=== PATIENT | male | born 1960 | race Caucasian/White ===

== ENCOUNTER 2019-01-30 08:06 | Day surgery (SDC) | payer OTHER ==
[~2019-01-30] VITALS: Ht 185.4 cm; Wt 98.4 kg
[~2019-01-30 08:06] MED LIST: ACETAMINOPHEN-1 EAC1 PO; GRALISE1 EACH PO; NORCO 10-325 T1 EACH PO
[2019-01-30] MEDS ORDERED: BACLOFEN5 MG PO (08:34)
--- NOTE | 2019-01-30 11:21 | NUR ---
01/30/19 1121 Radha Rebollar 1118-PATIENT ARRIVED TO PACU ON 2L NC RR EVEN. LAYING LEFT LATERAL. PATIENT DROWSY AROUSES TO VERBAL STIMULI DOZES BACK TO SLEEP. ENCOURAGED TO PASS GAS
--- NOTE | 2019-01-31 09:51 | OR ---
[facility] [address], [place] [address] Signed DATE OF OPERATION: 01/30/2019 SURGEON: Neema Cardozo MD PREOPERATIVE DIAGNOSES: 1. Screening. 2. External hemorrhoids. POSTOPERATIVE DIAGNOSES: 1. A 4 mm polyp at 35 cm. 2. Minimal sigmoid diverticulosis. 3. Minimal internal hemorrhoids. PROCEDURE: Colonoscopy with hot biopsy. ESTIMATED BLOOD LOSS: None. INDICATIONS: Victor Manuel is a 58-year-old gentleman, asked to see me for a followup colonoscopy. He had a negative colonoscopy in December 2005. He has no family history of colon cancer or polyps. He went through the [facility] stapled hemorrhoidopexy for his bleeding external hemorrhoids. He said once in a while, he still has a little blood. Otherwise, he is doing fine. He told me about the ishmael in his left hip/femur. In the office, I gave Aleida booklet on colonoscopy and we looked it together along with the risks including, but not limited to gas, bloating, crampy abdominal pain, bleeding, perforation requiring surgery, and missed diagnosis. We also discussed the need for IV conscious sedation. He had expressed understanding and wished to proceed. PROCEDURE NOTE: Victor Manuel was taken into our endoscopy suite and placed in the left lateral decubitus position. He was given IV sedation with a total of 6 mg of Versed and 100 mcg of fentanyl. A digital rectal exam was performed. Really, the external area of the anus was quite unremarkable. He has good sphincter tone. His prostate is not enlarged, but is a little indurated. The adult colonoscope was then introduced and advanced under direct visualization of camera up into the cecum itself. His prep was good. We could easily see the appendiceal orifice and the ileocecal valve. The scope was slowly withdrawn. We took pictures throughout for photodocumentation. We saw a single small 4 mm polyp at 35 cm. It was easily removed with the help of hot biopsy forceps. We saw Electronically Signed By: NEEMA CARDOZO MD 01/31/19 0951 PATIENT NAME: VICTOR MANUEL QUIROZ OPERATIVE REPORT DATE OF : 64 REPORT #: [id number] PHYSICIAN: NEEMA CARDOZO MD PCP: PRINCE MOISE PA-C REPORT IS CONFIDENTIAL AND NOT TO BE RELEASED WITHOUT AUTHORIZATION [facility] [address], [place] [address] Signed just a few diverticula in the proximal sigmoid colon. Once in the rectum, he does have an interesting haustral fold at about 5 cm where there was some scar coming down. We did take several pictures of that just for photodocumentation. However, he has never had any rectal surgery up that high. When we retroflexed the scope, we can see just a tiny circular scar from his previous PPH hemorrhoidopexy. He has very small internal hemorrhoid columns. After this, the gas was suctioned out and colonoscope removed. Victor Manuel tolerated the procedure quite well. RECOMMENDATIONS: I will see Victor Manuel back in my office in 7 to 14 days to review his results. Neema Cardozo MD ALB/MODL /[id number] cc: KHANH Jaquez MD Copies: PRINCE MOISE PA-C, ANDREW L MD ~ Electronically Signed By: NEEMA CARDOZO MD 01/31/19 0951 PATIENT NAME: VICTOR MANUEL QUIROZ OPERATIVE REPORT DATE OF : 64 REPORT #: [id number] PHYSICIAN: NEEMA CARDOZO MD PCP: PRINCE MOISE PA-C REPORT IS CONFIDENTIAL AND NOT TO BE RELEASED WITHOUT AUTHORIZATION
--- NOTE | 2019-01-31 15:47 | PATH ---
[facility] [address] [place], [place] [address] Signed SPECIMEN(S): A COLON POLYP AT 35 CM SPECIMEN SOURCE: A. COLON POLYP AT 35 CM CLINICAL HISTORY: History of external hemorrhoids. Postop DX: Diverticulosis; polyp; internal hemorrhoids. MICROSCOPIC DESCRIPTION: Histologic sections of all submitted blocks are examined by light microscopy. These findings, together with the gross examination, support the pathologic diagnosis. FINAL PATHOLOGIC DIAGNOSIS: Mucosa, colon at 35 cm, biopsy: - Surface features suggestive but not entirely diagnostic for hyperplastic polyp. COMMENT: Multiple levels over 3 slides are examined. No adenomatous change or full thickness hyperplastic change is seen. LJA:glc:C GROSS DESCRIPTION: The specimen, labeled "RODERICK, colon polyp at 35 cm," is received in formalin and consists of a single 0.2 cm mahmood tissue fragment. Specimen is entirely submitted in cassette (A1). AM (under the direct supervision of a pathologist) The Gross Description was prepared using a voice recognition system. The report was reviewed for accuracy; however, sound-alike word errors, addition and/or deletions may occur. If there is any question about this report, please contact Client Services. PERFORMING LABORATORY: The technical component was performed by [employer] [address] [place] [id number] (Restaurant Floor Manager: Brandy Mendoza MD; CLIA# [id number]). Professional interpretation was performed by [employer], [address] [address] (Restaurant Floor Manager: Michoacano Velasquez MD; CLIA# [id number]). PATIENT NAME: VICTOR MANUEL QUIROZ PATHOLOGY DATE OF : 64 REPORT #: [id number] PHYSICIAN: [facility] PATH[facility] PCP: PRINCE MOISE PA-C REPORT IS CONFIDENTIAL AND NOT TO BE RELEASED WITHOUT AUTHORIZATION [facility] [address] [place], [place] [address], [place] [address] Signed Diagnostician: Michoacano Velasquez MD Pathologist Electronically Signed 01/31/2019 Copies: ~ PATIENT NAME: VICTOR MANUEL QUIROZ PATHOLOGY DATE OF : 64 REPORT #: [id number] PHYSICIAN: [facility] PATHOLOG[facility] PCP: PRINCE MOISE PA-C REPORT IS CONFIDENTIAL AND NOT TO BE RELEASED WITHOUT AUTHORIZATION
== END 2019-01-30 12:05 | disposition home or self-care (01) ==
LOC: OPS 08:06 → DS 08:10 → OPS 09:45
PROVIDERS: Colon & Rectal Surgery
PROC: 0DBE8ZZ Excision of Large Intestine, Via Natural or Artificial Opening Endoscopic (ICD-10-PCS; principal; 2019-01-30 09:45)
DX: Z12.11 Encounter for screening for malignant neoplasm of colon (principal); K63.5 Polyp of colon; K57.30 Diverticulosis of large intestine without perforation or abscess without bleeding; K64.8 Other hemorrhoids; F17.290 Nicotine dependence, other tobacco product, uncomplicated; Z98.890 Other specified postprocedural states; Z79.899 Other long term (current) drug therapy
CPT/HCPCS: 99153; G0500; J2250; J3010